=== PATIENT | female | born 1955 | race Caucasian/White ===

== ENCOUNTER → 2018-08-30 | Outpatient (CLI) | payer OTHER ==
[~2018-08-30] MED LIST: ATOR20TA22 PO; ESTR0.62 PO; FLAX100041 PO; GUAI600T57 PO; IBUP-2704 PO; LEVO-85 PO; LISI5TAB25 PO; OMEG-11 PO; OXYC-865 PO; oxygen
--- NOTE | 2018-08-30 18:56 | RADIOLOGY IMAGING REPORT ---
FACILITY: [facility] PATIENT NAME: Ambar Hassan : 1955 MR: [id number] V: [id number] EXAM DATE: ORDERING PHYSICIAN: KAYLA LOPEZ TECHNOLOGIST: [place] [facility] [place] : 1955 Visit/Account:[id number] Date of Sevice: 08/30/2018 EXAMINATION: CT HEAD WITHOUT CONTRAST COMPARISON: None available HISTORY: Concussion. PROCEDURE: Noncontrast CT from the vertex through the skull base. One of the following dose optimizat ion techniques was utilized in the performance of this exam: Automated exposure control; adjustment o f the mA and/or kV according to the patient's size; or use of an iterative reconstruction technique. Specific details can be referenced in the facility's radiology CT exam operational policy. FINDINGS: Brain volume: Mild global volume loss. Hemorrhage/extra-axial fluid: None. Mass effect/midline shift/edema: None. Ischemia: Mild chronic-appearing white matter change with no focal region of acute link-white differe ntiation loss. Ventricles and basal cisterns: Within normal limits. Posterior fossa: Negative. Vessels: Negative. Calvarium, skull base, and scalp: Hyperostosis frontalis. No acute findings. Visualized sinuses and orbits: Within normal limits. IMPRESSION: 1. No intracranial hemorrhage or mass effect. 2. Mild atrophy and chronic-appearing white matter disease. No CT findings of acute ischemia. Report Dictated By: Kang Alexandre MD at 08/30/2018 6:45 PM Report E-Signed By: Kang Alexandre MD at 08/30/2018 6:53 PM WSN:[id number]
== END ==
LOC: CT 18:11
PROVIDERS: ATTEND Nurse Practitioner Family
DX: S06.0X0A Concussion without loss of consciousness, initial encounter (principal)
CPT/HCPCS: 70450